=== PATIENT | male | born 1970 | race Caucasian/White ===

== ENCOUNTER 2018-01-03 20:53 | Emergency (ER) | payer OTHER ==
[~2018-01-03] VITALS: Ht 193 cm; Wt 95.3 kg
[2018-01-03] MEDS ORDERED: [UNRECOGNIZED DRUG - OTHER] (21:07)
[2018-01-03] MEDS ORDERED: descovy (21:07)
[2018-01-03 21:13] VITALS: BP 119/84
[2018-01-03 21:38] LABS: HEMATOCRIT 39.4 % (42.0-52.0); HEMOGLOBIN 13.8 G/DL (14.2-18.0); MEAN CORPUSCULAR VOLUME 90 FL (80-99); RED CELL DISTRIBUTION WIDTH 11.8 % (11.6-14.8); WHITE BLOOD COUNT 6.5 K/UL (4.8-10.8)
[2018-01-03 21:43] LABS: PLATELET COUNT 19 K/UL (150-450)
[2018-01-03] MEDS ORDERED: Phytonadione 10 mg/mL 1ml amp SUBQ ONE (22:30)
--- NOTE | 2018-01-03 22:34 | Emergency Room Report ---
History of Present Illness General Chief Complaint: Abnormal Labs Source: Patient Present Illness HPI This is a 47-year-old male with history of HIV. He just started on Ticivay and Descovy 6 months ago. He presents with chief complaint of low platelet count. He has a small wound on his left chest that has been oozing since this morning. He saw his doctor who checked a blood count and his platelet count was 31, 000. He said that he's been having bruising since he started his HIV medication. No head trauma. No bleeding gum. No black stool. He said he had blood count done in the past and was told that his platelet counts have been low. Never been told to go to the hospital however. Denies any other complaint. Allergies: Coded Allergies: No Known Allergies (Unverified , 01/03/18) Patient History Past Medical History: see triage record, old chart reviewed, HIV Past Surgical History: other Pertinent Family History: none Social History: Denies: smoking Immunizations: other Reviewed Nursing Documentation: PMH: Agreed; PSxH: Agreed Nursing Documentation-PMH Past Medical History: No History, Except For Hx Cancer: Yes - skin cancer-upper lip and left yarsani removed 2012 Review of Systems Eye: Denies: eye pain, blurred vision ENT: Denies: ear pain, nose congestion, throat swelling Respiratory: Denies: cough, shortness of breath Cardiovascular: Denies: chest pain, palpitations Gastrointestinal: Denies: abdominal pain, diarrhea, nausea, vomiting Musculoskeletal: Denies: back pain, joint pain Skin: Denies: rash Neurological: Denies: headache, numbness Endocrine: Denies: increased thirst, increased urine Hematologic/Lymphatic: Denies: easy bruising All Other Systems: negative except mentioned in HPI Physical Exam Vital Signs Date Time Temp Pulse Resp B/P (MAP) Pulse Ox O2 Delivery O2 Flow Rate FiO2 01/03/18 20:59 97.9 68 16 119/84 98 Room Air 97.9 vitals normal Sp02 EP Interpretation: reviewed, normal General Appearance: well appearing, no apparent distress, alert Head: normocephalic, atraumatic Eyes: bilateral eye PERRL, bilateral eye EOMI ENT: hearing grossly normal, normal pharynx Neck: full range of motion, supple, no meningismus Respiratory: chest non-tender, lungs clear, normal breath sounds, other - Mid chest just left laterally: There is a small wound about one to 2 mm is oozing blood. This is from a small vessel. Cardiovascular #1: regular rate, rhythm, no murmur Gastrointestinal: normal bowel sounds, non tender, no mass, no organomegaly, no bruit, non-distended Musculoskeletal: back normal, gait/station normal, normal range of motion, other - he has ecchymosis to his right leg and left upper arm Psychiatric: mood/affect normal Skin: warm/dry Procedures Laceration/Wound Repair Laceration/Wound Repair : Consent: Verbal Wound Location: chest Wound's Depth, Shape: superficial Anesthesia: Lidocaine w/ Epi Volume Anesthetic (ccs): 1 Wound Repaired With: sutures Suture Size/Type: 5:0, nylon Number of Sutures: 2 Patient Tolerated: Well Complications: None Progress I placed 1 purse string suture which decreased the bleeding was still oozing. Place interrupted suture and then Surgicel on top of the wound. This stopped the bleeding. Medical Decision Making Diagnostic Impression: Primary Impression: Thrombocytopenia Additional Impression: Bleeding from wound ER Course This patient presents with a thrombocytopenia. No evidence of infection. I discussed the case with Dr. Windy Otero, Patrol Inspector. He recommended that the patient be admitted. He asked that I send a PTT/INR, DIC panel. He recommended vitamin K 10 mg subcutaneous and platelets transfusion. Does not recommend steroid for now. I reviewed the patient medication and his Desovay may cause severe thrombocytopenia in the Tenofovir portion of the drugs. His other medication can also cause thrombocytopenia. Patient noticed the symptom once he started his medication. I will have him stop both of them. I explained the patient needs to be admitted to the hospital but he said he doesn't want to be admitted. He said his bleeding is stopped and he has no time to be admitted to the hospital. He said he will follow-up with the flour worker. He will also follow-up with his infectious disease doctor for reassessment of his HIV medication. I recommend that he avoid aspirin or NSAID. Avoid any activity like his mountain biking that can cause him to fall hit his head and cause internal bleeding. Told patient to come back for any evidence of bleeding like vomiting blood or black stool. Patient is competent to make his decision to leave AGAINST MEDICAL ADVICE. Last Vital Signs Date Time Temp Pulse Resp B/P (MAP) Pulse Ox O2 Delivery O2 Flow Rate FiO2 7/18 20:59 97.9 68 16 119/84 98 Room Air 97.9 Status: improved Disposition: HOME, SELF-CARE Condition: Stable Referrals: NON PHYSICIAN (PCP) Additional Instructions: Stop your HIV medication for now. Avoid aspirin, NSAID like Motrin, Aleve, Advil, etc. Avoid strenuous activity like biking that can cause injury. Return for evidence of bleeding like vomiting blood or black stool. Follow-up with flour worker BHANU. Return if worse. BROOKLYN SANTIAGO M.D. Jan 03, 2018 22:34
[2018-01-03 22:43] VITALS: BP 0/0
[2018-01-03 23:06] LABS: INR 1.1 (0.9-1.1)
== END 2018-01-03 22:43 | disposition home or self-care (01) ==
LOC: EMR 22:06
DX: D69.6 Thrombocytopenia, unspecified (principal); S21.112A Laceration without foreign body of left front wall of thorax without penetration into thoracic cavity, initial encounter; X58.XXXA Exposure to other specified factors, initial encounter; Y93.9 Activity, unspecified; Y92.9 Unspecified place or not applicable; Z85.828 Personal history of other malignant neoplasm of skin
CPT/HCPCS: 12001; 36415; 83615; 85007; 85025; 85044; 85379; 85384; 85610; 96372; 99283; J3430